=== PATIENT | male | born 1990 | race Caucasian/White ===

== ENCOUNTER 2018-06-04 06:19 | Day surgery (SDC) | payer MEDICAID ==
[~2018-06-04] VITALS: Ht 182.9 cm; Wt 104.3 kg
--- NOTE | ~2018-06-04 | OP ---
PATIENT NAME: OSVALDO CASTANEDA MEDICAL RECORD: [id number] :88 LOCATION:[facility] ADMISSION DATE: SURGEON: MALIKA MARCELO MD DATE OF OPERATION: 06/04/2018 PREOPERATIVE DIAGNOSES: Tonsillar hypertrophy and chronic tonsillitis. POSTOPERATIVE DIAGNOSES: Tonsillar hypertrophy and chronic tonsillitis. PROCEDURE: Tonsillectomy. SURGEON: Malika Marcelo MD ANESTHESIA: General orotracheal. BLOOD LOSS: 50 cc. SPECIMENS: Right and left tonsil. COMPLICATIONS: None. DISPOSITION: Recovery stable. DESCRIPTION OF PROCEDURE: He was brought to operating room and placed in supine position, sedated and intubated by anesthesia. The eyes were taped. Table was turned 90 degrees. Head drapes applied and he was positioned for tonsillectomy. Using a headlight, a Debbie-Sal mouth gag was carefully inserted and elevated on a towel on his chest. The palate was examined and palpated. It was normal. The palate was retracted. A mirror was used to examine the nasopharynx. The choanae and eustachian orifices were normal bilaterally with no significant adenoid tissue. The right tonsil was grasped at superior pole with a straight Allis clamp. Spatula tip cautery on a setting of 9 was used to dissect out the tonsil along its capsule, preserving the anterior and posterior tonsillar pillar. Bleeding was significant oozing from the mucosal edges, not that it was so profuse to suggest persistent diffuse oozing. The left tonsil was removed in the same fashion. Some tonsil sponges were used. Suction cautery on a setting of 20 was used to control minimal oozing. The area was inspected carefully. Again, because of the oozing and he did have some hematoma of his uvula that was trimmed off to prevent much swelling there and then the tonsillar fossae were closed with interrupted 3-0 Vicryl sutures. He was awakened, extubated, and transported to recovery in good condition. No complications. TRANSINT:[id number] Voice Confirmation ID: [id number] DOCUMENT ID: [id number] MALIKA MARCELO MD at 1818 CC: [id number] DICTATION DATE: 06/04/18 1059 [employer]: 06/04/18 1241 [facility] [place] 06/04/18 [facility] [address] [facility] [place] [address]
--- NOTE | ~2018-06-04 | HP ---
PATIENT: OSVALDO CASTANEDA MEDICAL RECORD: [id number] ACCOUNT: [id number] LOCATION:[facility] : 89 ADMISSION DATE: 06/04/18 PCP: CATALNIA ALONSO HISTORY AND PHYSICAL EXAMINATION PREOPERATIVE HISTORY AND PHYSICAL HISTORY OF PRESENT ILLNESS: Osvaldo is 27 years old. He has been having chronic episodes with tonsillitis and obstructive tonsillar hypertrophy symptoms. He is being admitted for tonsillectomy. PAST MEDICAL HISTORY: Otherwise negative. PAST SURGICAL HISTORY: None. CURRENT MEDICATIONS: Hydrocodone and Lyrica. ALLERGIES: No known drug allergies. PHYSICAL EXAMINATION: GENERAL: Healthy-appearing, developmentally normal. FACE: Normal, symmetric, no lesions. EYES: Sclerae and conjunctivae are normal. EARS: Canals and TMs normal. NOSE: No mass, polyps or drainage. ORAL CAVITY AND OROPHARYNX: A 4+ kissing tonsils. NECK: No masses, no adenopathy. CHEST: Clear. CARDIOVASCULAR: Regular rate and rhythm, no murmur. EXTREMITIES: Normal. IMPRESSION: Obstructive tonsillar hypertrophy and chronic pharyngitis. PLAN: Tonsillectomy. TRANSINT:[id number] Voice Confirmation ID: [id number] DOCUMENT ID: [id number] MALIKA SALVADOR MD at 1817 CC: [id number] DICTATION DATE: 05/31/18856 CONFERENCE DIRECTOR: 05/31/18917 [facility] 06/04/18 [id number] [place] [address]
[2018-06-04] MEDS ORDERED: LYRICA150 MG PO (07:02)
[2018-06-04] MEDS ORDERED: NORCO 7.5/325 T1 TA1 PO (07:02)
[2018-06-04 07:15] VITALS: BP 111/75; Ht 182.9 cm; Wt 104.3 kg
[2018-06-04 10:38] LABS: BASOPHILS 0.3 % (0-2); EOSINOPHILS 4.1 % (0-7); HEMATOCRIT 40.3 % (42.0-54.0); IMMATURE GRANULOCYTES 0.1 % (0-5); LYMPHOCYTES 44.9 % (15-50); MCH 28.1 pg (26.0-34.0); MCHC 32.3 g/dL (31.0-37.0); MEAN PLATELET VOLUME 9.3 fL (7.4-10.4); MONOCYTES 9.4 % (2-11); NEUTROPHILS 41.2 % (40-80); PLATELET COUNT 197 10x3/uL (130-400); RBC 4.63 10x6/uL (4.20-6.10); RDW 13.3 % (11.5-14.5); WBC 7.6 10x3/uL (4.8-10.8)
[2018-06-04 10:43] LABS: INR 1.04 (0.85-1.17); PROTIME 13.1 SECONDS (11.6-15.0)
== END 2018-06-04 12:47 | disposition home or self-care (01) ==
LOC: D.OPS 06:19 → D.PAN 08:15 → D.OPS 08:15 → D.PAN 08:45 → D.OPS 12:47
PROVIDERS: Otolaryngology
DX: J35.01 Chronic tonsillitis (principal); Z01.812 Encounter for preprocedural laboratory examination